=== PATIENT | male | born 1965 | race Caucasian/White ===

== ENCOUNTER 2020-01-22 13:29 | Outpatient (CLI) | payer MEDICAID ==
[~2020-01-22] VITALS: Ht 167.6 cm; Wt 86.6 kg
[~2020-01-22 13:29] MED LIST: LIBRIUM25 MG ORAL
[2020-01-22 16:29] VITALS: BP 116/77
--- NOTE | 2020-01-23 20:44 | Consultation ---
DATE OF CONSULTATION: 01/22/2020 CONSULTING PHYSICIAN: Foreign Griffin MD. CHIEF COMPLAINT: Abdominal pain. HISTORY OF PRESENT ILLNESS: This is a very pleasant 54-year-old male with past medical history of "colitis." He is not exactly sure what kind of colitis. He is not currently on any treatment. He has also history of alcoholism, referred to us for evaluation of abdominal pain. PAST MEDICAL HISTORY: 1. Colitis. 2. Alcoholism. PAST SURGICAL HISTORY: None. MEDICATIONS: None. FAMILY HISTORY: None. SOCIAL HISTORY: Patient drinks vodka every day and also smokes cigarettes every day. Denies any IV drug abuse. ALLERGIES: No known allergies. REVIEW OF SYSTEMS: Positive for abdominal pain, rectal bleeding, bloating. PHYSICAL EXAMINATION: VITAL SIGNS: Temperature 98.2, blood pressure is 116/77, pulse 70, respirations 20. HEENT: Normocephalic and atraumatic. Sclerae anicteric. NECK: Supple. No evidence of obvious lymphadenopathy. CARDIOVASCULAR: Regular rate and rhythm. Plus S1, S2. LUNGS: Clear to auscultation bilaterally. ABDOMEN: Soft. Bowel sounds present. Minimal tenderness to palpation in the right lower quadrant. No rebound. No guarding. No peritoneal sign. EXTREMITIES: No cyanosis, no clubbing, no edema. IMAGING STUDIES: CT of the abdomen and pelvis was done at [facility] showed: 1. Evidence of possible colitis up to sigmoid colon. 2. Polypoid seen the sigmoid colon. 3. Fatty infiltration of the liver. 4. Diverticulosis. 5. Umbilical and bilateral inguinal hernia. ASSESSMENT: 1. Abdominal pain. 2. Questionable colitis. 3. Filling defect in the colon. 4. Fatty liver. 5. Alcoholism. 6. Umbilical and bilateral inguinal hernias. PLAN: Patient will need an urgent colonoscopy. We will try to get authorization from the insurance and schedule him for urgent colonoscopy. Foreign Griffin M.D. DR: AURORA JOB#: [id number] CC:
== END 2020-01-22 15:29 | disposition home or self-care (01) ==
LOC: PAN 13:29
DX: R10.9 Unspecified abdominal pain (principal); F10.20 Alcohol dependence, uncomplicated; F17.210 Nicotine dependence, cigarettes, uncomplicated; R14.0 Abdominal distension (gaseous); K62.5 Hemorrhage of anus and rectum; K76.0 Fatty (change of) liver, not elsewhere classified; K42.9 Umbilical hernia without obstruction or gangrene; K40.20 Bilateral inguinal hernia, without obstruction or gangrene, not specified as recurrent
CPT/HCPCS: G0463

== ENCOUNTER 2020-03-10 13:35 | Outpatient (CLI) | payer MEDICAID ==
--- NOTE | 2020-03-10 18:44 | Progress Note ---
DATE: 03/10/2020 SUBJECTIVE: No complaints. The patient had a colonoscopy, at this time asymptomatic. PHYSICAL EXAMINATION: VITAL SIGNS: Stable. HEENT: Normocephalic and atraumatic. Sclerae are anicteric. NECK: Supple. No evidence of obvious lymphadenopathy. CARDIOVASCULAR: . Plus S1, S2. LUNGS: Clear to auscultation bilaterally. ABDOMEN: Positive bowel sounds. Soft and nontender. No rebound. No guarding. No peritoneal sign. EXTREMITIES: No cyanosis. No clubbing. No edema. ASSESSMENT: The patient had prior colonoscopy done on March 04 which showed three colonic polyps which was removed. Diverticulosis of the left colon, internal hemorrhoids, nonspecific colitis in the sigmoid which most probably was diverticulosis related. PLAN: At this time, the patient is asymptomatic. He stopped drinking alcohol. He said he feels a lot better. He has changed his diet. At this time, he is asymptomatic. The patient was encouraged to continue avoiding alcohol. The patient will need a repeat colonoscopy in three years. Foreign Griffin M.D. DR: Debora JOB#: [id number] CC:
== END 2020-03-10 15:35 | disposition home or self-care (01) ==
LOC: PAN 13:35
DX: K57.90 Diverticulosis of intestine, part unspecified, without perforation or abscess without bleeding (principal); Z86.010 Personal history of colon polyps
CPT/HCPCS: 99212